=== PATIENT | female | born 1985 | race Two or more races ===

== ENCOUNTER 2018-09-09 11:51 | Emergency (ER) | payer OTHER ==
[~2018-09-09] VITALS: Ht 157.5 cm; Wt 65.0 kg
[2018-09-09 11:56] VITALS: Ht 157.5 cm; Wt 65.0 kg
--- NOTE | 2018-09-09 11:56 | ERD ---
ER Documentation Chief Complaint Chief Complaint near fainting HPI The patient is a 33-year-old female, presenting to the ER from cath labs. Her father had an AZ, went to the [facility] and . When the button maker informed her that her father , she felt dizzy and almost fainted. Code Green was activated and she was brought to the ER for further evaluation. She feels much better now and wants to go back to see her father. She did not have any head trauma, she was assisted by her family member. She denies headache, neck pain, chest pain, dyspnea, abdominal pain, vomiting, dysuria, diarrhea, tongue bite, fecal/urinary incontinence. She does not smoke nor drink Past medical/surgical history: None ROS All systems reviewed and are negative except as per history of present illness. Medications Home Meds Reported Medications [None] No Conflict Check 04/18/10 Allergies Allergies: Coded Allergies: No Known Allergies (Verified Allergy, Mild, 04/18/10) PMhx/Soc History of Surgery: No Anesthesia Reaction: No Hx Neurological Disorder: No Hx Respiratory Disorders: No Hx Cardiac Disorders: No Hx Psychiatric Problems: No Hx Miscellaneous Medical Probl: No Hx Alcohol Use: No Hx Substance Use: No Hx Tobacco Use: No Physical Exam Vitals Vital Signs Date Temp Pulse Resp B/P (MAP) Pulse Ox O2 O2 Flow FiO2 Time Delivery Rate 09/09/18 70 18 117/63 100 Room Air 12:16 (81) 09/09/18 98.4 100 16 111/79 100 11:56 (90) 09/09/18 98.1 102 18 117/83 99 11:55 (94) Physical Exam Const: No acute distress. Head: Atraumatic. Eyes: Normal Conjunctiva. ENT: Normal External Ears, Nose and Mouth. Neck: Full range of motion. No meningismus. Resp: Clear to auscultation bilaterally. Cardio: Regular rate and rhythm. Abd: Soft, non distended, normal bowel sounds, non tender. Skin: No petechiae or rashes. Back: No midline or flank tenderness. Ext: No cyanosis, or edema. Neur: Awake and alert. No focal deficit Psych: Normal Mood and Affect. Results 24 hrs Laboratory Tests Test 09/09/18 12:10 Bedside Glucose 83 mg/dL [facility] EKG: Read by emergency physician Rate/Rhythm: Sinus tachycardia 102 beats/min QRS, ST, T-waves: No ST elevation, no T inversion Impression: Abnormal EKG MEDICAL MAKING DECISION: The patient is a 33-year-old female, presenting with mo st likely acute vasovagal near near syncope due to the bad news. Accu-Chek was within normal limit, she is stable for outpatient follow-up The differential diagnoses considered include but are not limited to arrhythmogenic right ventricular dysplasia, Brugada syndrome, left ventricular hypertrophy, pulmonary embolism, QT abnormality, [id number]. Departure Diagnosis: Primary Impression: Vasovagal near syncope Condition: Good Comments I discussed the findings with the patient. I advised the patient to follow-up with the primary physician in about 2-3 days, sooner if needed and return if any concern. Disclaimer: Inadvertent spelling and grammatical errors are likely due to EHR/dictation software use and do not reflect on the overall quality of patient care. Also, please note that the electronic time recorded on this note does not necessarily reflect the actual time of the patient encounter. YINKA AKERS MD Sep 09, 2018 11:56
[2018-09-09 12:16] VITALS: BP 117/63; PULSE 70; RESP 18
== END 2018-09-09 14:34 | disposition home or self-care (01) ==
LOC: E/R 11:51
DX: R55 Syncope and collapse (principal)
CPT/HCPCS: 82962; 93005